=== PATIENT | female | born 2000 | race Caucasian/White ===

== ENCOUNTER 2021-06-14 09:56 | Emergency (ER) | payer SELFPAY ==
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
[2021-06-14 10:03] VITALS: BP 131/98; PULSE 110; RESP 20; TEMP 36.8; O2SAT 98
--- NOTE | 2021-06-14 10:35 | PCRCNOTE ---
PT. REFUSED TO HAVE ABG DRAWN; CYNDY GANNON PA-C NOTIFIED OF THE REFUSAL.
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
[2021-06-14 10:54] VITALS: BP 120/83; PULSE 90; RESP 20; O2SAT 99
[2021-06-14] MEDS: ALBUTEROL SULFATE NEB 2.5 MG/0.5 ML INH 5 MG INHALATION (11:00)
[2021-06-14 11:01] VITALS: PULSE 90; RESP 16
[2021-06-14 11:06] VITALS: PULSE 92; RESP 16
--- NOTE | 2021-06-14 11:18 | PC.NURSE ---
PT REFUSED TO HAVE HER BLOOD DRAWN. NOTIFIED OF NEED FOR TEST. PT VERBALIZES UNDERSTANDING.
[2021-06-14] MEDS: ACETAMINOPHEN 500 MG TABLET 1000 MG PO (11:58)
[2021-06-14 11:59] VITALS: BP 121/89; PULSE 84; RESP 20; O2SAT 99
[2021-06-14 12:47] VITALS: BP 122/80; PULSE 80; RESP 20; O2SAT 99
== END 2021-06-14 12:48 | disposition home or self-care (01) ==
PROVIDERS: Emergency Provider Emergency Medicine
DX: T59.811A Toxic effect of smoke, accidental (unintentional), initial encounter (principal); F17.290 Nicotine dependence, other tobacco product, uncomplicated
CPT/HCPCS: 71046; 94640; 99283; A9270

== ENCOUNTER 2021-11-09 22:25 | Emergency (ER) | payer SELFPAY ==
[2021-11-09 22:34] VITALS: BP 131/81; PULSE 99; RESP 15; TEMP 36.3; O2SAT 100
--- NOTE | 2021-11-10 01:01 | PC.NURSE ---
Pt to intake desk and states I dont want to wait anymore. I am going to go home and see if I feel better. I can come back tomorrow if I am still sick. Pt ambulated out in no distress w/ steady gait.
== END 2021-11-10 02:02 | disposition left against medical advice (07) ==
LOC: ANHED 11-10 01:42
DX: Z53.21 Procedure and treatment not carried out due to patient leaving prior to being seen by health care provider (principal)
CPT/HCPCS: 99199

== ENCOUNTER 2022-02-13 12:44 | Emergency (ER) | payer SELFPAY ==
[2022-02-13 12:49] VITALS: BP 149/89; PULSE 112; RESP 18; TEMP 36.4; O2SAT 99
--- NOTE | 2022-02-13 13:00 | PC.NURSE ---
Patient presents to the ED with depression. Patient reports that she has been thinking that people may be better off without her here . The patient denies that she has been having suicidal thoughts or any plan of suicide. Patient states I want to live. I don't want to but I do wonder what the the world would be like without me in it . Patient does have a history of a suicide attempt by overdose when she was 15. The patient reports that she began seeing a provider through [facility] back in June and has been taking Lamictal, Celexa, and Wellbutrin. She did stop her medications in September because she reported that she was feeling better. However, she samayoa taking her medications again in November when she began having mood swings . Patient reports that she has been feeling overwhelmed with life events and stressors lately. The patient is calm and cooperative but very tearful.
--- NOTE | 2022-02-13 13:33 | ED.PSYCH ---
HPI - Psych General Chief Complaint: Psychiatric Symptoms Stated Complaint: si Time Seen by Provider: 02/13/22 13:06 Source: patient History of Present Illness HPI Narrative: Patient presents with suicidal ideation. Reports longstanding history of bipolar depression and has had prior suicide attempts when she was in high school by taking a bunch of pills. Her thoughts of wanting to be have been intermittent for years number more constant over the past several days she has no active plan but just wonders what it would be like if she was . She says she uses [facility] that prescribes her her medications. Reports she has been on antidepressants and mood stabilizers but discontinued them a while ago and is recently reinitiated on her medications. She denies any attempts to hurt herself today. Pain is reports she is unsure what to do because she feels like the weight of the world is pressing down on her. Related Data Home Medications Medication Instructions Recorded Confirmed bupropion HCl 200 mg PO 02/13/22 citalopram 20 mg 02/13/22 lamotrigine 200 mg PO DAILY 02/13/22 Allergies Allergy/AdvReac Type Severity Reaction Status Date / Time No Known Allergies Allergy Verified 02/13/22 12:47 Review of Systems Review of Systems: CONSTITUTIONAL: Denies fever, chills, or sweats. EYES: Denies visual changes, redness, or discharge. ENT: Denies rhinorrhea, congestion, sore throat, or otalgia. CARDIOVASCULAR: Denies chest pain, palpitations, or edema. RESPIRATORY: Denies cough or dyspnea. GASTROINTESTINAL: Denies abdominal pain, nausea, vomiting, or diarrhea. GENITOURINARY: Denies dysuria or hematuria. SKIN: Denies rash or itching. MUSCULOSKELETAL: Denies back pain, joint pain, or myalgia. NEUROLOGIC: Denies headache, numbness, dizziness, or weakness. PSYCHIATRIC: Reports feeling depressed and having thoughts of hurting herself PMFSH Past Medical History Medical History History of migraine Social History Social History Smoking status: Current some day smoker Tobacco type: e-cigarettes/vaping Substance use type: does not use Gender identity (if verbalized by the patient): Female Exam Narrative: GENERAL: Well-appearing, well-nourished, and in no acute distress. HEAD: Normocephalic, atraumatic. EYES: PERRLA and EOMI. ENT: Nares clear, no rhinorrhea or epistaxis. Mucous membranes moist. NECK: Supple. No masses. No JVD EXTREMITIES: Normal range of motion. No edema. SKIN: Warm, dry, no rash. NEURO: No focal deficits. Alert and oriented x3. PSYCH: Feeling depressed reports HI Course Reevaluation(s) Reevaluation #1: Patient is resting comfortably work-up thus far is reassuring. Patient is medically stable and cleared for crisis evaluation and psychiatric admission if deemed appropriate. Date: 02/13/22 Time: 14:47 Reevaluation #2: Patient is resting comfortably has been evaluated by crisis who recommends outpatient safety plan given patient's passive thoughts this is appropriate. Patient is also comfortable with outpatient plan. Date: 02/13/22 Time: 16:10 Vital Signs Vital signs: Vital Signs Temperature 36.4 C 02/13/22 12:49 Pulse Rate 112 H 02/13/22 12:49 Respiratory Rate 18 02/13/22 12:49 Blood Pressure 149/89 H 02/13/22 12:49 Pulse Oximetry 99 02/13/22 12:49 Temperature 36.4 C 02/13/22 12:49 Pulse Rate 112 H 02/13/22 12:49 Respiratory Rate 18 02/13/22 12:49 Blood Pressure 149/89 H 02/13/22 12:49 Pulse Oximetry 99 02/13/22 12:49 MDM - Psych MDM Narrative Medical decision making narrative: H&P as above, vss, pt looks clinically well, exam without toxidrome, labs clinically unremarkable, additional labs/img considered, symptomatic relief available as needed, on reevaluation pt continues to looks clinically well. Patient chacon
[2022-02-13 13:38] LABS: Basophils Percent Auto 0.4 % (0.2-1.2); Eosinophils Absolute Auto 0.1 K/mm3 (0-0.3); Eosinophils Percent Auto 0.9 % (0-4.4); Hemoglobin 13.2 g/dL (12.0-15.0); Immature Granulocyte Absolute 0.02 K/mm3 (0.00-0.031); Immature Granulocyte Percent A 0.3 % (0-0.5); Lymphocytes Absolute Auto 2.01 K/mm3 (0.9-3.2); Lymphocytes Percent Auto 28.6 % (18.3-44.2); Mean Corpuscular Hemoglobin 29.9 pg (26-34); Mean Corpuscular Volume 90.7 fl (80-100); Mean Platelet Volume 10.6 fl (7.4-10.4); Monocytes Absolute Auto 0.6 K/mm3 (0.1-0.6); Monocytes Percent Auto 8.3 % (2.6-8.5); Neutrophils Absolute Auto 4.3 K/mm3 (1.3-6.7); Neutrophils Percent Auto 61.5 % (45.5-73.1); Platelet Count Result 301 k/mm3 (150-375); Red Blood Count 4.41 M/mm3 (4.2-5.4)
[2022-02-13 13:41] LABS: Add Urine Microscopic? NO; Appearance Urine Clear (Clear); Bilirubin Urine Negative (Negative); Blood Urine Negative (Negative); Color Urine Yellow (Yellow); Glucose Urine UA Negative (Negative); Ketones Urine Negative (Negative); Leukocyte Esterase Ur Negative LEU/UL (Negative); Nitrate Urine Negative (Negative); Protein Urine Negative (Negative); Specific Grav Ur 1.016 (1.001-1.035); Urobilinogen Urine Negative mg/dL (<2.0)
[2022-02-13 13:45] LABS: Alanine Aminotransferase 48 U/L (4-35); Albumin Level 4.8 g/dL (3.5-5.1); Alkaline Phosphatase 70 U/L (38-126); Anion Gap 8 mmol/L (8-16); Aspartate Amino Transferase 36 U/L (14-36); Bilirubin,Total 0.4 mg/dL (0.2-1.3); Blood Urea Nitrogen 8 mg/dL (7-17); Calcium 9.4 mg/dL (8.4-10.2); Carbon Dioxide 29 mmol/L (22-30); Chloride 104 mmol/L (98-107); Estimated CRCL calculation 109 ml/min; Estimated Glomerular Filt Rate > 60; Glucose 89 mg/dL (65-110); Potassium 4.1 mmol/L (3.4-5.0); Sodium 141 mmol/L (137-145)
[2022-02-13 13:53] LABS: Amphetamine Screen Urine Negative (Negative); Barbiturate Screen Urine Negative (Negative); Benzodiazepines Screen Urine Negative (Negative); Cannabinoid Screen Urine Negative (Negative); Cocaine Screen Urine Negative (Negative); Ethanol < 10 mg/dL (<10); Methadone Screen Urine Negative (Negative); Opiate Screen Urine Negative (Negative); Phencyclidine Screen Urine Negative (Negative)
[2022-02-13 14:46] LABS: SARS-CoV-2 RNA PCR Negative
--- NOTE | 2022-02-13 15:53 | PC.NURSE ---
Crisis at bedside to assess pt. Per Deena with Crisis patient will go home on a safety plan.
== END 2022-02-13 16:25 | disposition home or self-care (01) ==
PROVIDERS: Emergency Medicine; Emergency Provider Emergency Medicine
DX: F31.9 Bipolar disorder, unspecified (principal); R45.851 Suicidal ideations; F17.290 Nicotine dependence, other tobacco product, uncomplicated; Z20.822 Contact with and (suspected) exposure to COVID-19
CPT/HCPCS: 36415; 80053; 80307; 81003; 81025; 84443; 85025; 99284; C9803; U0003; U0005